=== PATIENT | female | born 1940 | race Caucasian/White ===

== ENCOUNTER 2022-09-14 09:46 | Outpatient (CLI) | payer MEDICARE, SELFPAY ==
--- NOTE | ~2022-09-14 | CT_ITS ---
EXAMINATION: CT brain wo/w con DATE: 09/14/2022 10:49 INDICATION: Cognitive decline TECHNIQUE: Computed tomography (CT) of the head was performed without intravenous contrast. The mA wa s adjusted according to patient size. Iterative reconstruction technique was employed. Exam dose: 12 10.67 mGy-cm total exam DLP. COMPARISON: None FINDINGS: There is mild cerebellar and prominent central and cortical cerebral atrophy. There is calcification of the internal carotid arteries. There is nonspecific diminished attenuation of the cerebral white matter, likely due to chronic small vessel ischemic changes. No intracranial mass lesion or hemorrhage, midline shift or mass effect. No subdural or epidural araceli tobi. The mastoid air cells and included paranasal sinuses are normally developed and aerated. No fracture or bone destruction of the cranial vault. IMPRESSION: Prominent central and cortical cerebral atrophy and mild cerebellar volume loss Cerebral atherosclerosis and chronic small vessel ischemic changes of the cerebral white matter No acute intracranial finding Reviewed, dictated and finalized at [facility]. Reviewed, dictated and finalized at [facility]. 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
[2022-09-14 10:34] LABS: Estimated Glomerular Filt Rate > 60
== END 2022-09-14 09:47 | disposition home or self-care (01) ==
PROVIDERS: PCP Internal Medicine; Visit Provider Nurse Practitioner Family
DX: R41.81 Age-related cognitive decline (principal); G31.9 Degenerative disease of nervous system, unspecified; I67.2 Cerebral atherosclerosis
CPT/HCPCS: 70470; Q9967